=== PATIENT | male | born 1995 | race African-American/Black ===

== ENCOUNTER 2019-01-12 12:34 | Emergency (ER) | payer OTHER ==
[~2019-01-12] VITALS: Ht 188 cm; Wt 93.0 kg
[2019-01-12 13:09] VITALS: BP 124/84
[2019-01-12] MEDS ORDERED: cefTRIAXone SOD 1,000 MG VL IM ONE (14:00)
== END 2019-01-12 14:25 | disposition home or self-care (01) ==
LOC: ER 12:34
DX: L03.113 Cellulitis of right upper limb (principal)
CPT/HCPCS: 73130; 96372; 99283; J0696